=== PATIENT | female | born 2005 | race African-American/Black ===

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

== ENCOUNTER → 2023-05-17 | Emergency (ER) | payer OTHER ==
[~2023-05-17] MED LIST: CEFTRIAXONE 1000 MG/VIAL ONE; KETOROLAC 30 MG/ML INJ ONE; NA CHLORIDE 0.9% 1,000 ML ONE; NA CHLORIDE 0.9% 50 ML ONE
--- OUTSIDE RECORDS SUMMARY | 2023-05-17 22:35 | XMS REPORT | Continuity of Care Document ---
Author Name Unknown Address 1200 [facility] [address] th[address] Address 1200 [facility]. 1 495 [place] [address] Care Team Providers Care Acid Operator Name Role Phone GC_LMG_Lab Attending Clinician Unavailable Yanelis Fuller Attending Clinician [phone] [facility]_LMG_Lab Admitting Clinician Unavailable Payers Payer Name Policy Type Policy Number Effective Date Expirati on Date Source [facility]LY [facility] [id number] 2020 00:00:00 [facility]LY [facility] [employer] [facility] (MEDICAID CHIP) [id number] 2019 00:00:00 Social History Smoking Status Start Date Stop Date Source Never Smoker [facility] Medications Ordered Medication Name Filled Medication Name Start Date Stop Date Current Medication? Ordering Clinician Indication Dosage Frequency Signature (SIG) Comments Components Source Depo-Lens Maker a 150 mg/mL intramuscul ar syringeInje ct 150 mg every 3 months by intramuscul ar route for 90 days. Depo-Lens Maker a 150 mg/mL intramuscul ar syringeInje ct 150 mg every 3 months by intramuscul ar route for 90 days. 06-13 08:20: 19 No Depo-Prove ra 150 mg/mL intramuscu lar syringeInj ect 150 mg every 3 months by intramuscu lar route for 90 days. [facility] Depo-Lens Maker a 150 mg/mL intramuscul ar syringeInje ct 150 mg every 3 months by intramuscul ar route for 90 days. Depo-Lens Maker a 150 mg/mL intramuscul ar syringeInje ct 150 mg every 3 months by intramuscul ar route for 90 days. 1 08:36: 25 No Depo-Prove ra 150 mg/mL intramuscu lar syringeInj ect 150 mg every 3 months by intramuscu lar route for 90 days. [facility] medroxyprog esterone 150 mg/mL intramuscul ar suspensionI nject 1 mL every 3 months by intramuscul ar route as directed for 90 days. medroxyprog esterone 150 mg/mL intramuscul ar suspensionI nject 1 mL every 3 months by intramuscul ar route as directed for 90 days. 2021-03 09:30: 29 No medroxypro gesterone 150 mg/mL intramuscu lar suspension Inject 1 mL every 3 months by intramuscu lar route as directed for 90 days. [facility] medroxyprog esterone 150 mg/mL intramuscul ar syringeInje ct 150 mg every 3 months by intramuscul ar route for 90 days. medroxyprog esterone 150 mg/mL intramuscul ar syringeInje ct 150 mg every 3 months by intramuscul ar route for 90 days. 09-15 08:54: 42 No medroxypro gesterone 150 mg/mL intramuscu lar syringeInj ect 150 mg every 3 months by intramuscu lar route for 90 days. [facility] Depo-Lens Maker a 150 mg/mL intramuscul ar syringeInje ct 150 mg every 3 months by intramuscul ar route for 90 days. Depo-Lens Maker a 150 mg/mL intramuscul ar syringeInje ct 150 mg every 3 months by intramuscul ar route for 90 days. 03-18 08:36: 29 No Depo-Prove ra 150 mg/mL intramuscu lar syringeInj ect 150 mg every 3 months by intramuscu lar route for 90 days. [facility] Depo-Lens Maker a 150 mg/mL intramuscul ar syringeInje ct 150 mg every 3 months by intramuscul ar route for 90 days. Depo-Lens Maker a 150 mg/mL intramuscul ar syringeInje ct 150 mg every 3 months by intramuscul ar route for 90 days. 07-01 08:20: 29 No Depo-Prove ra 150 mg/mL intramuscu lar syringeInj ect 150 mg every 3 months by intramuscu lar route for 90 days. [facility] albuterol sulfate HFA 90 mcg/actuati on aerosol inhaler INHALE 2 PUFFS BY MOUTH EVERY 4 TO 6 HOURS NEEDED albuterol sulfate HFA 90 mcg/actuati on aerosol inhaler INHALE 2 PUFFS BY MOUTH EVERY 4 TO 6 HOURS NEEDED No albuterol sulfate HFA 90 mcg/actuat ion aerosol inhaler INHALE 2 PUFFS BY MOUTH EVERY 4 TO 6 HOURS NEEDED [facility] fluticasone propionate 50 mcg/actuati on nasal spray,suspe nsion fluticasone propionate 50 mcg/actuati on nasal spray,suspe nsion No fluticason e propionate 50 mcg/actuat ion nasal spray,susp ension [facility] medroxyprog esterone 150 mg/mL intramuscul ar suspension Inject 1 mL every 3 months by intramuscul ar route as directed for 90 days. medroxyprog esterone 150 mg/mL intramuscul ar suspension Inject 1 mL every 3 months by intramuscul ar route as directed for 90 days. No 1mL medroxypro gesterone 150 mg/mL intramuscu lar suspension Inject 1 mL every 3 months by intramuscu lar route as directed for 90 days. [facility] medroxyprog esterone 150 mg/mL intramuscul ar syringe Inject 150 mg every 3 months by intramuscul ar route for 90 days. medroxyprog esterone 150 mg/mL intramuscul ar syringe Inject 150 mg every 3 months by intramuscul ar route for 90 days. No medroxypro gesterone 150 mg/mL intramuscu lar syringe Inject 150 mg every 3 months by intramuscu lar route for 90 days. [facility] tretinoin 0.05 % topical cream tretinoin 0.05 % topical cream No tretinoin 0.05 % topical cream [facility] albuterol sulfate HFA 90 mcg/actuati on aerosol inhaler INHALE 2 PUFFS BY MOUTH EVERY 4 TO 6 HOURS NEEDED albuterol sulfate HFA 90 mcg/actuati on aerosol inhaler INHALE 2 PUFFS BY MOUTH EVERY 4 TO 6 HOURS NEEDED No albuterol sulfate HFA 90 mcg/actuat ion aerosol inhaler INHALE 2 PUFFS BY MOUTH EVERY 4 TO 6 HOURS NEEDED [facility] fluticasone propionate 50 mcg/actuati on nasal spray,suspe nsion fluticasone propionate 50 mcg/actuati on nasal spray,suspe nsion No fluticason e propionate 50 mcg/actuat ion nasal spray,susp ension [facility] medroxyprog esterone 150 mg/mL intramuscul ar suspension Inject 1 mL every 3 months by intramuscul ar route as directed for 90 days. medroxyprog esterone 150 mg/mL intramuscul ar suspension Inject 1 mL every 3 months by intramuscul ar route as directed for 90 days. No 1mL medroxypro gesterone 150 mg/mL intramuscu lar suspension Inject 1 mL every 3 months by intramuscu lar route as directed for 90 days. [facility] medroxyprog esterone 150 mg/mL intramuscul ar syringe Inject 150 mg every 3 months by intramuscul ar route for 90 days. medroxyprog esterone 150 mg/mL intramuscul ar syringe Inject 150 mg every 3 months by intramuscul ar route for 90 days. No 150mg medroxypro gesterone 150 mg/mL intramuscu lar syringe Inject 150 mg every 3 months by intramuscu lar route for 90 days. [facility] tretinoin 0.05 % topical cream tretinoin 0.05 % topical cream No tretinoin 0.05 % topical cream [facility] albuterol sulfate HFA 90 mcg/actuati on aerosol inhaler INHALE 2 PUFFS BY MOUTH EVERY 4 TO 6 HOURS NEEDED albuterol sulfate HFA 90 mcg/actuati on aerosol inhaler INHALE 2 PUFFS BY MOUTH EVERY 4 TO 6 HOURS NEEDED No albuterol sulfate HFA 90 mcg/actuat ion aerosol inhaler INHALE 2 PUFFS BY MOUTH EVERY 4 TO 6 HOURS NEEDED [facility] fluticasone propionate 50 mcg/actuati on nasal spray,suspe nsion fluticasone propionate 50 mcg/actuati on nasal spray,suspe nsion No fluticason e propionate 50 mcg/actuat ion nasal spray,susp ension [facility] medroxyprog esterone 150 mg/mL intramuscul ar suspension Inject 1 mL every 3 months by intramuscul ar route as directed for 90 days. medroxyprog esterone 150 mg/mL intramuscul ar suspension Inject 1 mL every 3 months by intramuscul ar route as directed for 90 days. No 1mL medroxypro gesterone 150 mg/mL intramuscu lar suspension Inject 1 mL every 3 months by intramuscu lar route as directed for 90 days. [facility] medroxyprog esterone 150 mg/mL intramuscul ar syringe Inject 150 mg every 3 months by intramuscul ar route for 90 days. medroxyprog esterone 150 mg/mL intramuscul ar syringe Inject 150 mg every 3 months by intramuscul ar route for 90 days. No medroxypro gesterone 150 mg/mL intramuscu lar syringe Inject 150 mg every 3 months by intramuscu lar route for 90 days. [facility] tretinoin 0.05 % topical cream tretinoin 0.05 % topical cream No tretinoin 0.05 % topical cream [facility] albuterol sulfate HFA 90 mcg/actuati on aerosol inhaler INHALE 2 PUFFS BY MOUTH EVERY 4 TO 6 HOURS NEEDED albuterol sulfate HFA 90 mcg/actuati on aerosol inhaler INHALE 2 PUFFS BY MOUTH EVERY 4 TO 6 HOURS NEEDED No albuterol sulfate HFA 90 mcg/actuat ion aerosol inhaler INHALE 2 PUFFS BY MOUTH EVERY 4 TO 6 HOURS NEEDED [facility] Depo-Lens Maker a 150 mg/mL intramuscul ar syringe Inject 150 mg every 3 months by intramuscul ar route for 90 days. Depo-Lens Maker a 150 mg/mL intramuscul ar syringe Inject 150 mg every 3 months by intramuscul ar route for 90 days. No 150mg Depo-Prove ra 150 mg/mL intramuscu lar syringe Inject 150 mg every 3 months by intramuscu lar route for 90 days. [facility] fluticasone propionate 50 mcg/actuati on nasal spray,suspe nsion fluticasone propionate 50 mcg/actuati on nasal spray,suspe nsion No fluticason e propionate 50 mcg/actuat ion nasal spray,susp ension [facility] medroxyprog esterone 150 mg/mL intramuscul ar suspension Inject 1 mL every 3 months by intramuscul ar route as directed for 90 days. medroxyprog esterone 150 mg/mL intramuscul ar suspension Inject 1 mL every 3 months by intramuscul ar route as directed for 90 days. No 1mL medroxypro gesterone 150 mg/mL intramuscu lar suspension Inject 1 mL every 3 months by intramuscu lar route as directed for 90 days. [facility] oseltamivir 75 mg capsule TAKE 1 CAPSULE BY MOUTH TWICE A DAY oseltamivir 75 mg capsule TAKE 1 CAPSULE BY MOUTH TWICE A DAY No oseltamivi r 75 mg capsule TAKE 1 CAPSULE BY MOUTH TWICE A DAY [facility] tretinoin 0.05 % topical cream tretinoin 0.05 % topical cream No tretinoin 0.05 % topical cream [facility] albuterol sulfate HFA 90 mcg/actuati on aerosol inhaler INHALE 2 PUFFS BY MOUTH EVERY 4 TO 6 HOURS NEEDED albuterol sulfate HFA 90 mcg/actuati on aerosol inhaler INHALE 2 PUFFS BY MOUTH EVERY 4 TO 6 HOURS NEEDED No albuterol sulfate HFA 90 mcg/actuat ion aerosol inhaler INHALE 2 PUFFS BY MOUTH EVERY 4 TO 6 HOURS NEEDED [facility] Depo-Lens Maker a 150 mg/mL intramuscul ar syringe Inject 150 mg every 3 months by intramuscul ar route for 90 days. Depo-Lens Maker a 150 mg/mL intramuscul ar syringe Inject 150 mg every 3 months by intramuscul ar route for 90 days. No 150mg Depo-Prove ra 150 mg/mL intramuscu lar syringe Inject 150 mg every 3 months by intramuscu lar route for 90 days. [facility] fluticasone propionate 50 mcg/actuati on nasal spray,suspe nsion fluticasone propionate 50 mcg/actuati on nasal spray,suspe nsion No fluticason e propionate 50 mcg/actuat ion nasal spray,susp ension [facility] medroxyprog esterone 150 mg/mL intramuscul ar suspension Inject 1 mL every 3 months by intramuscul ar route as directed for 90 days. medroxyprog esterone 150 mg/mL intramuscul ar suspension Inject 1 mL every 3 months by intramuscul ar route as directed for 90 days. No 1mL medroxypro gesterone 150 mg/mL intramuscu lar suspension Inject 1 mL every 3 months by intramuscu lar route as directed for 90 days. [facility] oseltamivir 75 mg capsule TAKE 1 CAPSULE BY MOUTH TWICE A DAY oseltamivir 75 mg capsule TAKE 1 CAPSULE BY MOUTH TWICE A DAY No oseltamivi r 75 mg capsule TAKE 1 CAPSULE BY MOUTH TWICE A DAY [facility] tretinoin 0.05 % topical cream tretinoin 0.05 % topical cream No tretinoin 0.05 % topical cream [facility] albuterol sulfate HFA 90 mcg/actuati on aerosol inhaler INHALE 2 PUFF BY INHALATION ROUTE EVERY 4 6 HOURS NEEDED albuterol sulfate HFA 90 mcg/actuati on aerosol inhaler INHALE 2 PUFF BY INHALATION ROUTE EVERY 4 6 HOURS NEEDED No albuterol sulfate HFA 90 mcg/actuat ion aerosol inhaler INHALE 2 PUFF BY INHALATION ROUTE EVERY 4 6 HOURS NEEDED [facility] Depo-Lens Maker a 150 mg/mL intramuscul ar syringe Inject 150 mg every 3 months by intramuscul ar route for 90 days. Depo-Lens Maker a 150 mg/mL intramuscul ar syringe Inject 150 mg every 3 months by intramuscul ar route for 90 days. No 150mg Depo-Prove ra 150 mg/mL intramuscu lar syringe Inject 150 mg every 3 months by intramuscu lar route for 90 days. [facility] esomeprazol e magnesium 40 mg capsule,del ayed release TAKE 1 CAPSULE BY MOUTH EVERY DAY esomeprazol e magnesium 40 mg capsule,del ayed release TAKE 1 CAPSULE BY MOUTH EVERY DAY No esomeprazo le magnesium 40 mg capsule,de layed release TAKE 1 CAPSULE BY MOUTH EVERY DAY [facility] montelukast 10 mg tablet TAKE 1 TABLET BY MOUTH EVERY DAY IN THE EVENING montelukast 10 mg tablet TAKE 1 TABLET BY MOUTH EVERY DAY IN THE EVENING No montelukas t 10 mg tablet TAKE 1 TABLET BY MOUTH EVERY DAY IN THE EVENING [facility] polyethylen e glycol 3350 17 gram/dose oral powder TAKE 1 TABLESPOONF UL 17 GRAM MIXED WITH 8 OZ WATER OR JUICE ONCE A DAY polyethylen e glycol 3350 17 gram/dose oral powder TAKE 1 TABLESPOONF UL 17 GRAM MIXED WITH 8 OZ WATER OR JUICE ONCE A DAY No polyethyle ne glycol 3350 17 gram/dose oral powder TAKE 1 TABLESPOON FUL 17 GRAM MIXED WITH 8 OZ WATER OR JUICE ONCE A DAY [facility] tretinoin 0.05 % topical cream tretinoin 0.05 % topical cream No tretinoin 0.05 % topical cream [facility] albuterol sulfate HFA 90 mcg/actuati on aerosol inhaler INHALE 2 PUFF BY INHALATION ROUTE EVERY 4 6 HOURS NEEDED albuterol sulfate HFA 90 mcg/actuati on aerosol inhaler INHALE 2 PUFF BY INHALATION ROUTE EVERY 4 6 HOURS NEEDED No albuterol sulfate HFA 90 mcg/actuat ion aerosol inhaler INHALE 2 PUFF BY INHALATION ROUTE EVERY 4 6 HOURS NEEDED [facility] azithromyci n 250 mg tablet azithromyci n 250 mg tablet No azithromyc in 250 mg tablet [facility] Depo-Lens Maker a 150 mg/mL intramuscul ar syringe Inject 150 mg every 3 months by intramuscul ar route for 90 days. Depo-Lens Maker a 150 mg/mL intramuscul ar syringe Inject 150 mg every 3 months by intramuscul ar route for 90 days. No 150mg Depo-Prove ra 150 mg/mL intramuscu lar syringe Inject 150 mg every 3 months by intramuscu lar route for 90 days. [facility] esomeprazol e magnesium 40 mg capsule,del ayed release TAKE 1 CAPSULE BY MOUTH EVERY DAY esomeprazol e magnesium 40 mg capsule,del ayed release TAKE 1 CAPSULE BY MOUTH EVERY DAY No esomeprazo le magnesium 40 mg capsule,de layed release TAKE 1 CAPSULE BY MOUTH EVERY DAY [facility] fluticasone propionate 50 mcg/actuati on nasal spray,suspe nsion fluticasone propionate 50 mcg/actuati on nasal spray,suspe nsion No fluticason e propionate 50 mcg/actuat ion nasal spray,susp ension [facility] montelukast 10 mg tablet TAKE 1 TABLET BY MOUTH EVERY DAY IN THE EVENING montelukast 10 mg tablet TAKE 1 TABLET BY MOUTH EVERY DAY IN THE EVENING No montelukas t 10 mg tablet TAKE 1 TABLET BY MOUTH EVERY DAY IN THE EVENING [facility] polyethylen e glycol 3350 17 gram/dose oral powder TAKE 1 TABLESPOONF UL 17 GRAM MIXED WITH 8 OZ WATER OR JUICE ONCE A DAY polyethylen e glycol 3350 17 gram/dose oral powder TAKE 1 TABLESPOONF UL 17 GRAM MIXED WITH 8 OZ WATER OR JUICE ONCE A DAY No polyethyle ne glycol 3350 17 gram/dose oral powder TAKE 1 TABLESPOON FUL 17 GRAM MIXED WITH 8 OZ WATER OR JUICE ONCE A DAY [facility] tretinoin 0.05 % topical cream tretinoin 0.05 % topical cream No tretinoin 0.05 % topical cream [facility] Depo-Lens Maker a 150 mg/mL intramuscul ar syringe Inject 150 mg every 3 months by intramuscul ar route for 90 days. Depo-Lens Maker a 150 mg/mL intramuscul ar syringe Inject 150 mg every 3 months by intramuscul ar route for 90 days. No 150mg Depo-Prove ra 150 mg/mL intramuscu lar syringe Inject 150 mg every 3 months by intramuscu lar route for 90 days. [facility] tretinoin 0.05 % topical cream tretinoin 0.05 % topical cream No tretinoin 0.05 % topical cream [facility] Vital Signs Vital Name Observation Time Observation Value Comments S ource BP Diastolic 2022-06-13 00:00:00 76 mm[Hg] [facility] Height 2022-06-13 00:00:00 60 [in_i] [facility] BMI (Body Mass Index) 2022-06-13 00:00:00 24.5 kg/m2 [facility] BP Systolic 2022-06-13 00:00:00 114 mm[Hg] [facility] Body Weight 2022-06-13 00:00:00 125.2 [lb_av] [facility] BP Diastolic 2022-03-16 00:00:00 81 mm[Hg] [facility] Height 2022-03-16 00:00:00 60 [in_i] [facility] BMI (Body Mass Index) 2022-03-16 00:00:00 24.1 kg/m2 [facility] BP Systolic 2022-03-16 00:00:00 118 mm[Hg] [facility] Body Weight 2022-03-16 00:00:00 123.2 [lb_av] [facility] BP Diastolic 2021-12-16 00:00:00 76 mm[Hg] [facility] Height 2021-12-16 00:00:00 60 [in_i] [facility] BMI (Body Mass Index) 2021-12-16 00:00:00 24.6 kg/m2 [facility] BP Systolic 2021-12-16 00:00:00 115 mm[Hg] [facility] Body Weight 2021-12-16 00:00:00 125.8 [lb_av] [facility] BP Diastolic 2021-09-15 00:00:00 83 mm[Hg] [facility] Height 2021-09-15 00:00:00 60 [in_i] [facility] BMI (Body Mass Index) 2021-09-15 00:00:00 25.2 kg/m2 [facility] BP Systolic 2021-09-15 00:00:00 136 mm[Hg] [facility] Body Weight 2021-09-15 00:00:00 129 [lb_av] [facility] BP Diastolic 2021-06-16 00:00:00 72 mm[Hg] [facility] Height 2021-06-16 00:00:00 60 [in_i] [facility] BMI (Body Mass Index) 2021-06-16 00:00:00 25 kg/m2 [facility] BP Systolic 2021-06-16 00:00:00 104 mm[Hg] [facility] Body Weight 2021-06-16 00:00:00 127.8 [lb_av] [facility] BP Diastolic 2021-04-22 00:00:00 81 mm[Hg] [facility] Height 2021-04-22 00:00:00 60 [in_i] [facility] BMI (Body Mass Index) 2021-04-22 00:00:00 24.4 kg/m2 [facility] BP Systolic 2021-04-22 00:00:00 129 mm[Hg] [facility] Body Weight 2021-04-22 00:00:00 125 [lb_av] [facility] BP Diastolic 2021-03-18 00:00:00 75 mm[Hg] [facility] Height 2021-03-18 00:00:00 60 [in_i] [facility] BMI (Body Mass Index) 2021-03-18 00:00:00 23.8 kg/m2 [facility] BP Systolic 2021-03-18 00:00:00 120 mm[Hg] [facility] Body Weight 2021-03-18 00:00:00 122 [lb_av] [facility] Plan of Care Planned Activity Planned Date Details Comments Source Diagnostic Test Pending 2022-06-13 00:00:00 test, urine [code = test, urine] [facility] Encounters Start Date/Time End Date/Time Encounter Type Admission Type Attending [facility] Care Facility Care Department Encounter ID Source 2022-08-24 00:00:00 2022-08-24 00:00:00 Outpatient GC_LMG_Lab PRIV PRIV [id number] [facility] 2022-06-13 00:00:00 2022-06-13 00:00:00 [facility]O [facility]: [address] [place] [address] , Ph. Critical [facility] - [facility] [facility]* [id number] [facility] 2022-03-28 00:00:00 2022-03-28 00:00:00 Outpatient GC_LMG_Lab PRIV PRIV [id number] [facility] 2022-03-28 00:00:00 2022-03-28 00:00:00 Outpatient GC_LMG_Lab PRIV PRIV [id number] [facility] 2022-03-16 00:00:00 2022-03-16 00:00:00 Yanelis Fuller [facility]: [address] [place] [address] , Ph. Critical [facility] hospital - [facility] [facility]* [id number] [facility] 2022-03-15 00:00:00 2022-03-15 00:00:00 Outpatient GC_LMG_Lab [facility] [id number] [facility] 2022-03-15 00:00:00 2022-03-15 00:00:00 Outpatient GC_LMG_Lab [facility] PRIV [id number] [facility] 2021-12-16 00:00:00 2021-12-16 00:00:00 Yanelis Fuller [facility]: [address] [place] [address] , Ph. Critical [facility] hospital - [facility]* [id number] [facility] 2021-12-14 00:00:00 2021-12-14 00:00:00 Outpatient GC_LMG_Lab PRIV PRIV [id number] [facility] 2021-12-13 00:00:00 2021-12-13 00:00:00 Outpatient GC_LMG_Lab PRIV PRIV [id number] [facility] 2021-09-15 10:02:00 2021-09-15 10:02:00 Outpatient GC_LMG_Lab PRIV PRIV [id number] [facility] 2021-09-15 00:00:00 2021-09-15 00:00:00 [facility] [address] [place] [address] , Ph. Critical [facility] hospital - [facility]* [id number] [facility] 2021-09-15 00:00:00 2021-09-15 00:00:00 Outpatient Yanelsi Fuller PRIV [id number] 2021-09-12 03:18:00 2021-09-12 03:18:00 Outpatient GC_LMG_Lab PRIV PRIV [id number] [facility] 2021-09-06 10:19:00 2021-09-06 10:19:00 Outpatient GC_LMG_Lab PRIV PRIV [id number] [facility] 2021-06-16 10:20:00 2021-06-16 10:20:00 Outpatient GC_LMG_Lab PRIV PRIV [id number] [facility] 2021-06-16 00:00:00 2021-06-16 00:00:00 Yanelis Fuller [facility]: [address] [place] [address] , Ph. Critical access hospital - [facility]* [id number] [facility] 2021-06-16 00:00:00 2021-06-16 00:00:00 Outpatient Yanelis Fuller PRIV [id number] 2021-06-15 04:00:00 2021-06-15 04:00:00 Outpatient GC_LMG_Lab PRIV PRIV [id number] [facility] 2021-06-13 01:55:00 2021-06-13 01:55:00 Outpatient GC_LMG_Lab [facility] [id number] [facility] 2021-04-22 12:40:00 2021-04-22 12:40:00 Outpatient GC_LMG_Lab PRIV PRIV [id number] [facility] 2021-04-22 00:00:00 2021-04-22 00:00:00 Outpatient Ly, Ynaelis MOORE [id number] 2021-04-22 00:00:00 2021-04-22 00:00:00 Yanelis FullerROMEO-BC: [address] [place] [address] , Ph. Critical access hospital - [facility] Office* [id number] [facility] 2021-04-12 04:33:00 2021-04-12 04:33:00 Outpatient GC_LMG_Lab [facility] [id number] [facility] 2021-04-07 01:03:00 2021-04-07 01:03:00 Outpatient GC_LMG_Lab [facility] [id number] [facility] 2021-03-25 07:19:00 2021-03-25 07:19:00 Outpatient GC_LMG_Lab [facility] [id number] [facility] 2021-03-18 10:42:00 2021-03-18 10:42:00 Outpatient GC_LMG_Lab [facility] [id number] [facility] 2021-03-18 00:00:00 2021-03-18 00:00:00 Outpatient Ly, Yanelis MOORE PRIV [id number] 2021-03-18 00:00:00 2021-03-18 00:00:00 Yanelis FullerGALILEA-BC: [address] [place] [address] , Ph. Critical [facility] hospital - [facility] [facility]* [id number] [facility] 2021 11:46:00 2021 11:46:00 Outpatient GC_LMG_Lab [facility] [id number] [facility] 2021-02-08 03:40:00 2021-02-08 03:40:00 Outpatient GC_LMG_Lab [facility] [id number] [facility] 2020-07-14 01:52:00 2020-07-14 01:52:00 Outpatient GC_LMG_Lab [facility] [id number] [facility] 2020-07-01 09:29:00 2020-07-01 09:29:00 Outpatient GC_LMG_Lab [facility] [id number] [facility] 2020-07-01 00:00:00 2020-07-01 00:00:00 Outpatient Alina Yanelis [facility] [id number] 2020-07-01 00:00:00 2020-07-01 00:00:00 Yanelis Fuller, [facility]: [address] [place] [address] , Ph. Critical access hospital - [facility]* [id number] [facility] 2020-06-24 01:03:00 2020-06-24 01:03:00 Outpatient GC_LMG_Lab [facility] [id number] [facility] Results Test Description Test Time Test Comments Results Result Co mments Source [facility], [id number] 08:24:41* Test Item Value Reference Range Interpretation Comme nts HCG (test code = HCG) negative [facility] Medical[facility]regnancy test, [id number] 08:34:34* Test Item Value Reference Range Interpretation Comme nts HCG (test code = HCG) negative [facility]regnancy test, [id number] 08:46:41* Test Item Value Reference Range Interpretation Comme nts HCG (test code = HCG) negative [facility] Medicalpregnancy test, [id number] 08:41:01* Test Item Value Reference Range Interpretation Comme nts HCG (test code = HCG) negative [facility] Medicalpregnancy test, [id number] 08:34:36* Test Item Value Reference Range Interpretation Comme nts HCG (test code = HCG) negative [facility]
[2023-05-17 23:11] LABS: Specific Gravity 1.015 (1.005-1.030); Urine Bilirubin NEGATIVE (Negative); Urine Blood Negative (Negative); Urine Clarity Clear (Clear); Urine Color Light-Yellow (Yellow); Urine Glucose NEGATIVE (Negative); Urine Ketones TRACE (Negative); Urine Microscopic Reflex YN NO UMIC; Urine Nitrite NEGATIVE (Negative); Urine Protein NEGATIVE (Negative); Urine Urobilinogen Normal (Normal); Urine pH 6.5 (5.0-7.0)
[2023-05-17 23:12] LABS: Specific Gravity 1.015 (1.005-1.030)
[2023-05-18 00:22] LABS: Absolute Eosinophils 0.4 K/uL (0-0.5); Absolute Lymphocytes (CBC) 2.7 K/uL (0.7-4.9); Absolute Monocytes 0.4 K/uL (0.1-1.3); Absolute Neutrophil 5.2 K/uL (1.8-8.0); Basophils % 0.4 % (0-1.3); Eosinophils % 4.2 % (0-4.4); Hematocrit 39.7 % (36.0-45.0); Hemoglobin 13.4 g/dL (12.0-15.0); Lymphocytes % 30.5 % (15.3-44.8); MCH 29.7 pg (27.0-35.0); MCHC 33.9 g/dL (32.0-36.0); MCV 87.7 fL (80-100); Neutrophils % 59.9 % (41.7-73.7); Platelets 233 thou/uL (152-406); RBC Red Blood Cell Count 4.53 M/uL (3.86-4.86); Red Cell Distribution Width 13.1 % (12.1-15.2)
[2023-05-18 00:39] LABS: Albumin 3.7 g/dL (3.4-5.0); Albumin/Globulin Ratio 0.9 (1.1-1.8); Anion Gap 6.6 mEq/L (5.0-15.0); Bilirubin Total 0.3 mg/dL (0.2-1.0); Globulin 4.3 g/dL (2.3-3.5); Potassium 3.6 mEq/L (3.5-5.1)
--- NOTE | 2023-05-18 01:56 | ER ---
Nurse's Notes [facility] Name: Cassi Stock Age: 18 yrs Sex: Female : 2005 Arrival Date: 05/17/2023 Time: 22:31 Bed 11 Private MD: Diagnosis: Slow transit constipation;Low back pain Presentation: 05/16 22:47 Chief complaint: Patient states: "my kidneys hurt and it kearney to pee". Coronavirus as6 screen: At this time, the client does not indicate any symptoms associated with coronavirus-19. Ebola Screen: No symptoms or risks identified at this time. Initial Sepsis Screen: Does the patient meet any 2 criteria? No. Patient's initial sepsis screen is negative. Does the patient have a suspected source of infection? No. Patient's initial sepsis screen is negative. Risk Assessment: Do you want to hurt yourself or someone else? Patient reports no desire to harm self or others. Onset of symptoms was May 15, 2023. 22:47 Acuity: MIKIE 3 as6 22:47 Method Of Arrival: Ambulatory as6 Triage Assessment: 22:50 General: Appears in no apparent distress. Behavior is calm, cooperative. Pain: as6 Complains of pain in left flank and right flank. 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 - Social history:: Smoking status: Patient denies any tobacco usage or history of. - Family history:: not pertinent. Screenin:15 [facility] ED Fall Risk Assessment (Adult) History of falling in the last 3 months, pf1 including since admission No falls in past 3 months (0 pts) Confusion or Disorientation No (0 pts) Intoxicated or Sedated No (0 pts) Impaired Gait No (0 pts) Mobility Assist Device Used No (0 pt) Altered Elimination No (0 pt) Score/Fall Risk Level 0 - 2 = Low Risk Oriented to surroundings, Maintained a safe environment, Educated pt \\T\\ family on fall prevention, incl call for assistance when getting out of bed, Assessed \\T\\ reinforced patient's understanding of fall precautions, Provided non-skid footwear, Hourly rounding (assess needs \\T\\ fall precautionary measures) done, Used ambulatory aids as needed (educated on \\T\\ assisted with), Used gait belt as appropriate. 23:15 Abuse screen: Denies threats or abuse. Nutritional screening: No deficits noted. pf1 Tuberculosis screening: No symptoms or risk factors identified. Assessment: 23:13 General: Appears in no apparent distress. comfortable, well groomed, well developed, pf1 Behavior is calm, cooperative, appropriate for age, quiet. 23:13 Pain: Complains of pain in back and right flank and left flank Pain currently is 8 out pf1 of 10 on a pain scale. Neuro: No deficits noted. Level of Consciousness is awake, alert, obeys commands, Oriented to person, place, time, situation. Cardiovascular: No deficits noted. Capillary refill < 3 seconds Patient's skin is warm and dry. Respiratory: No deficits noted. Airway is patent Respiratory effort is even, unlabored, Respiratory pattern is regular, symmetrical, Breath sounds are clear bilaterally. GI: Abdomen is flat, non-distended, Bowel sounds present X 4 quads. : Reports burning with urination, pain in right in left flank(s). EENT: No deficits noted. No signs and/or symptoms were reported regarding the EENT system. Derm: No deficits noted. No signs and/or symptoms reported regarding the dermatologic system. 05/17 00:00 Reassessment: Patient appears in no apparent distress at this time. Patient and/or pf1 family updated on plan of care and expected duration. Pain level reassessed. Patient is alert, oriented x 3, equal unlabored respirations, skin warm/dry/pink. Patient states symptoms have improved. 01:00 Reassessment: Patient appears in no apparent distress at this time. Patient and/or pf1 family updated on plan of care and expected duration. Pain level reassessed. Patient is alert, oriented x 3, equal unlabored respirations, skin warm/dry/pink. Patient states feeling better. Patient states symptoms have improved. 02:00 Reassessment: Patient appears in no apparent distress at this time. Patient and/or pf1 family updated on plan of care and expected duration. Pain level reassessed. Patient is alert, oriented x 3, equal unlabored respirations, skin warm/dry/pink. Patient states feeling better. Patient states symptoms have improved. Vital Signs: 05/16 22:47 BP 128 / 92; Pulse 92; Resp 18 S; Temp 98.1(TE); Pulse Ox 99% on R/A; Weight 58.97 kg as6 (R); Height 5 ft. 4 in. (R); Pain 10/10; 23:18 BP 127 / 91; Pulse 83; Resp 16; Temp 98.3; Pulse Ox 100% on R/A; Weight 58.97 kg; ty Height 5 ft. 4 in. ; Pain 8/10; 05/17 00:00 BP 109 / 66; Pulse 79; Resp 16; Pulse Ox 99% on R/A; pf1 01:00 BP 113 / 69; Pulse 82; Resp 16; Pulse Ox 100% on R/A; Pain 3/10; pf1 02:00 BP 109 / 69; Pulse 82; Resp 16; Temp 98.1(O); Pulse Ox 98% on R/A; Pain 2/10; pf1 05/16 23:18 Body Mass Index 22.31 (58.97 kg, 162.56 cm) ty 05/16 22:47 Pain Scale: Adult as6 23:18 Pain Scale: Adult ty 01:00 Pain Scale: Adult pf1 02:00 Pain Scale: Adult pf1 ED Course: 05/16 22:34 Patient arrived in ED. jj6 22:38 Eduard Bender MD is Attending Physician. sp4 22:47 Arm band placed on. as6 22:48 Triage completed. as6 05/17 00:00 No provider procedures requiring assistance completed. pf1 00:02 CT Abd/Pelvis - Without Contrast In Process Unspecified. EDMS 00:11 Adult w/ patient. Mother. ty 00:27 Door closed. Diet: Patient given water. ty 00:27 Inserted saline lock: 22 gauge in right antecubital area, using aseptic technique. ty Blood collected. 00:29 Initial lab(s) drawn, by me, sent to lab. ty 01:06 Warm blanket given. ty 01:55 David Rae MD is Referral Physician. sp4 02:10 IV discontinued, intact, bleeding controlled, No redness/swelling at site. Pressure pf1 dressing applied. 02:11 Provided Education on: prescriptions. pf1 Administered Medications: 00:20 Drug: Ketorolac IVP 30 mg IVP once Route: IVP; Site: right antecubital; pf1 01:20 Follow up: Response: No adverse reaction; Marked relief of symptoms; Pain is decreased pf1 00:22 Drug: NS 0.9% IV 1000 ml IV at 1 bolus Per protocol; 1000 mL bolus Route: IV; Rate: 1 pf1 bolus; Site: right antecubital; 01:20 Follow up: Response: No adverse reaction; Marked relief of symptoms; IV Status: pf1 Completed infusion; IV Intake: 1000ml 00:25 Drug: Rocephin - Rocephin (cefTRIAXone) IVPB 1 grams IVPB once over 30 mins; (mix in 50 pf1 mL NS) Route: IVPB; Infused Over: 30 mins; Site: right antecubital; 00:55 Follow up: Response: No adverse reaction; Marked relief of symptoms; IV Status: pf1 Completed infusion; IV Intake: 50ml Medication: 02:00 VIS not applicable for this client. pf1 Intake: 00:55 IV: 50ml; Total: 50ml. pf1 01:20 IV: 1000ml; Total: 1050ml. pf1 Outcome: 01:56 Discharge ordered by . sp4 02:11 Discharged to home ambulatory, with family, pf1 02:11 Condition: improved 02:11 Discharge instructions given to patient, family, Instructed on discharge instructions, follow up and referral plans. Demonstrated understanding of instructions, follow-up care, medications, Prescriptions given X 1, 02:11 Patient left the ED. pf1 Signatures: Dispatcher [employer] EDMS Maria Del Carmen [id number] Dakota Milner RN RN as6 Liz Anderson RN RN pf1 Eduard Bender MD MD sp4 Ramesh Sahu ty Corrections: (The following items were deleted from the chart) 01:09 01:07 Adult w/ patient. ty ty 01:09 00:11 Adult w/ patient. Mother ty ty
--- NOTE | 2023-05-18 01:57 | EDPHYS ---
Physician Documentation [facility] Name: Cassi Stock Age: 18 yrs Sex: Female : 2005 Arrival Date: 05/17/2023 Time: 22:31 Bed 11 Private MD: ED Physician Eduard Bender HPI: 05/16 22:38 This 18 yrs old Black Female presents to ER via Unassigned with complaints of Low Back sp4 Pain. 05/17 01:59 18-year-old female presents with complaint of lower back pain and also abdominal sp4 discomfort. She was diagnosed with UTI recently prescribed cefdinir. Patient has history of chronic constipation. 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 - Social history:: Smoking status: Patient denies any tobacco usage or history of. - Family history:: not pertinent. ROS: 05/17 01:59 Constitutional: Negative for fever, chills, and weight loss, positive abdominal sp4 discomfort positive lower back pain All other systems are negative, Exam: 01:59 Constitutional: This is a well developed, well nourished patient who is awake, alert, sp4 and in no acute distress. Head/Face: Normocephalic, atraumatic. Eyes: Pupils equal round and reactive to light, extra-ocular motions intact. Lids and lashes normal. Conjunctiva and sclera are not injected. Cornea within normal limits. Periorbital areas with no swelling, redness, or edema. ENT: Nares patent. No nasal discharge, no septal abnormalities noted. Tympanic membranes are normal and external auditory canals are clear. Oropharynx with no redness, swelling, or masses, exudates, or evidence of obstruction, uvula midline. Mucous membranes moist. Neck: Trachea midline, no thyromegaly or masses palpated, and no cervical lymphadenopathy. Supple, full range of motion without nuchal rigidity, or vertebral point tenderness. Chest/axilla: Normal chest wall appearance and motion. Nontender with no deformity. No lesions are appreciated. Cardiovascular: Regular rate and rhythm with a normal S1 and S2. No gallops, murmurs, or rubs. Normal PMI, no JVD. No pulse deficits. Respiratory: Lungs have equal breath sounds bilaterally, clear to auscultation and percussion. No rales, rhonchi or wheezes noted. No increased work of breathing, no retractions or nasal flaring. Abdomen/GI: Soft, with normal bowel sounds. No distension or tympany. No guarding or rebound. No evidence of tenderness throughout. Back: No spinal tenderness. No costovertebral tenderness. Skin: Warm, dry with normal turgor. Normal color with no rashes, no lesions, and no evidence of cellulitis. MS/ Extremity: Pulses equal, no cyanosis. Neurovascular intact. Full, normal range of motion. Neuro: Awake and alert, GCS 15, oriented to person, place, time, and situation. Cranial nerves II-XII grossly intact. Motor strength 5/5 in all extremities. Sensory grossly intact. Psych: Awake, alert, with orientation to person, place and time. Behavior, mood, and affect are within normal limits Vital Signs: 05/16 22:47 BP 128 / 92; Pulse 92; Resp 18 S; Temp 98.1(TE); Pulse Ox 99% on R/A; Weight 58.97 kg as6 (R); Height 5 ft. 4 in. (R); Pain 10/10; 23:18 BP 127 / 91; Pulse 83; Resp 16; Temp 98.3; Pulse Ox 100% on R/A; Weight 58.97 kg; ty Height 5 ft. 4 in. ; Pain 8/10; 05/17 00:00 BP 109 / 66; Pulse 79; Resp 16; Pulse Ox 99% on R/A; pf1 01:00 BP 113 / 69; Pulse 82; Resp 16; Pulse Ox 100% on R/A; Pain 3/10; pf1 02:00 BP 109 / 69; Pulse 82; Resp 16; Temp 98.1(O); Pulse Ox 98% on R/A; Pain 2/10; pf1 05/16 23:18 Body Mass Index 22.31 (58.97 kg, 162.56 cm) ty 05/16 22:47 Pain Scale: Adult as6 23:18 Pain Scale: Adult ty 01:00 Pain Scale: Adult pf1 02:00 Pain Scale: Adult pf1 MDM: 05/16 22:46 Patient medically screened. sp4 05/17 01:50 ED course: EXAM DESCRIPTION: Abdomen Pelvis Wo Contrast CLINICAL HISTORY: 18 years sp4 Female BILAT LOWER BACK PAIN COMPARISON: None TECHNIQUE: Images were obtained in axial, sagittal, and coronal planes. No intravenous or oral contrast was administered. This exam was performed according to our departmental dose-optimization program which includes use of Automated Exposure Control, adjustment of the mA and/or kV according to patient size and/or use of iterative reconstruction technique. FINDINGS: No abnormality involving the liver, is lean, pancreas, or adrenal glands bilaterally. Contracted gallbladder. Retained food and debris within the stomach. No obstructing renal or ureteral calculi bilaterally. No hydronephrosis bilaterally. Unremarkable bladder. Anteverted uterus. Marked constipation. Appendix not well identified however no secondary signs for appendicitis. No bowel obstruction, perforation, or inflammation. Adenopathy adjacent to cecum and right colon. No abnormality of the abdominal aorta. No abnormal fluid collections seen. Metallic jewelry in region of umbilicus. No abnormality of the lower lungs bilaterally. No acute osseous abnormality. IMPRESSION: Marked constipation. Adenopathy adjacent to cecum and right colon. Consider mesenteric adenitis. Otherwise unremarkable study. . 01:59 Differential diagnosis: arthritis, strain, Herniated disc UTI. Data reviewed: vital sp4 signs, nurses notes, lab test result(s), radiologic studies, CT scan. Consideration of Admission/Observation Escalation of care including admission/observation considered. ED course: CT has revealed retained food and debris within the stomach, unremarkable bladder, moderate constipation.. 02:01 ED course: Patient was advised to finish the course of her cefdinir. Otherwise mag sp4 citrate as needed for constipation also daily docusate. Patient was referred to Dr. Rae with gastroenterology about the chronic constipation. 05/16 22:50 Order name: CBC with Diff; Complete Time: 01:50 sp4 05/16 22:50 Order name: CMP; Complete Time: 01:50 sp4 05/16 22:50 Order name: Lipase; Complete Time: 01:50 sp4 05/16 22:50 Order name: Test, Urine; Complete Time: 01:50 sp4 05/16 22:50 Order name: Urinalysis w/ reflexes; Complete Time: 01:50 sp4 05/16 22:50 Order name: CT Abd/Pelvis - Without Contrast sp4 05/16 22:50 Order name: IV Saline Lock; Complete Time: 00:28 sp4 05/16 22:50 Order name: Labs collected and sent; Complete Time: 00 sp4 Administered Medications: 00:20 Drug: Ketorolac IVP 30 mg IVP once Route: IVP; Site: right antecubital; pf1 01:20 Follow up: Response: No adverse reaction; Marked relief of symptoms; Pain is decreased pf1 00:22 Drug: NS 0.9% IV 1000 ml IV at 1 bolus Per protocol; 1000 mL bolus Route: IV; Rate: 1 pf1 bolus; Site: right antecubital; 01:20 Follow up: Response: No adverse reaction; Marked relief of symptoms; IV Status: pf1 Completed infusion; IV Intake: 1000ml 00:25 Drug: Rocephin - Rocephin (cefTRIAXone) IVPB 1 grams IVPB once over 30 mins; (mix in 50 pf1 mL NS) Route: IVPB; Infused Over: 30 mins; Site: right antecubital; 00:55 Follow up: Response: No adverse reaction; Marked relief of symptoms; IV Status: pf1 Completed infusion; IV Intake: 50ml Disposition Summary: 05/18/23 01:56 Discharge Ordered Notes: Location: Home sp4 Problem: new sp4 Symptoms: have improved sp4 Condition: Stable sp4 Diagnosis - Slow transit constipation sp4 - Low back pain sp4 Followup: sp4 - With: David Rae MD - When: 7 - 10 days - Reason: Recheck today's complaints Discharge Instructions: - Discharge Summary Sheet sp4 - Constipation, Adult, [id number] sp4 Forms: - Patient Portal Instructions sp4 Prescriptions: - docusate sodium 100 mg Oral tablet - take 2 tablet ORAL route daily PRN constipation; 60 tablet; Refills: 0, Product sp4 Selection Permitted - magnesium citrate Oral solution - take 240 milliliter ORAL route daily as needed for constipation; 240 sp4 milliliter; Refills: 0, Product Selection Permitted Signatures: Dispatcher [employer] Dakota Pablo RN RN as6 Liz Anderson RN RN pf1 Eduard Bender MD MD sp4
[2023-05-18 02:43] VITALS: BP 127/91; TEMP 98.3; O2SAT 100
--- NOTE | 2023-05-19 15:38 | RAD REPORT ---
EXAM DESCRIPTION: CT - Abdomen Pelvis Wo Contrast - 05/18/2023 6:55 am Abdomen Pelvis Wo Contrast CLINICAL HISTORY: 18 years Female BILAT LOWER BACK PAIN COMPARISON: None TECHNIQUE: Images were obtained in axial, sagittal, and coronal planes. No intravenous or oral contr ast was administered. This exam was performed according to our departmental dose-optimization program which includes use of Automated Exposure Control, adjustment of the mA and/or kV according to patient size and/or use of iterative reconstruction technique. FINDINGS: No abnormality involving the liver, is lean, pancreas, or adrenal glands bilaterally. Cont racted gallbladder. Retained food and debris within the stomach. No obstructing renal or ureteral calculi bilaterally. No hydronephrosis bilaterally. Unremarkable junior dder. Anteverted uterus. Marked constipation. Appendix not well identified however no secondary signs for appendicitis. No bow el obstruction, perforation, or inflammation. Adenopathy adjacent to cecum and right colon. No abnormality of the abdominal aorta. No abnormal fluid collections seen. Metallic jewelry in region of umbilicus. No abnormality of the lower lungs bilaterally. No acute osseous abnormality. IMPRESSION: Marked constipation. Adenopathy adjacent to cecum and right colon. Consider mesenteric a denitis. Otherwise unremarkable study. Electronically signed by: Jeannette Hurley MD 05/18/2023 12:55 AM CDT Due to temporary technical issues with the PACS/Fluency reporting system, reports are being signed by the in house radiologists without review as a courtesy to insure prompt reporting. The interpreting radiologist is fully responsible for the content of the report.
== END ==
LOC: ER 22:31
DX: K59.01 Slow transit constipation (principal); M54.50 Low back pain, unspecified
CPT/HCPCS: 96365; 36415; 81025; 81003; 74176; 96375; 99284; J7030; J0696